=== PATIENT | female | born 1960 | race African-American/Black ===

== ENCOUNTER 2019-03-12 10:30 | Emergency (ER) | payer BC ==
--- NOTE | 2019-03-12 12:03 | RADIOLOGY REPORT (SQ) ---
EXAM DESCRIPTION: KNEE LEFT 4 VIEW COMPLETED DATE/TIME: 03/12/2019 11:48 am REASON FOR STUDY: left knee pain COMPARISON: None. NUMBER OF VIEWS: Four views left knee LIMITATIONS: None. FINDINGS: Mild anterior soft tissue swelling without radiopaque foreign body. Mild calcification, e nthesophyte formation along quadriceps insertion. No fracture or worrisome bone lesion. No effusion . OTHER: No other significant finding. IMPRESSION: As above. No fracture. TECHNICAL DOCUMENTATION: JOB ID: [id number] Reading location - IP/workstation name: [email or web address]
--- NOTE | 2019-03-12 12:15 | ER Document Report ---
HPI - HPI Patient complains to provider of: left knee pain Time Seen by Provider: 03/12/19 12:12 Onset: Just prior to arrival Onset/Duration: Sudden Severity: Severe Pain Level: 5 Context: Patient reports to the emergency department via EMS for complaints of left knee pain. Patient reports she was walking out to her car when she fell on the asphalt hitting her chin on the curb and her knee on the sidewalk. She is not sure when her last tetanus was. Patient reports she is able to walk but it hurts when she walks. Denies past medical history of injury to the knee. No other complaints such as fever vomiting diarrhea dizziness. Associated Symptoms: None Exacerbated by: Walking Relieved by: Denies Similar symptoms previously: No Recently seen / treated by doctor: No Past Medical History - General Information source: Patient Last Menstrual Period: cinthya. - Social History Smoking Status: Unknown if Ever Smoked Cigarette use (# per day): No Frequency of alcohol use: None Drug Abuse: None Occupation: [employer] Family History: None Patient has suicidal ideation: No Patient has homicidal ideation: No - Medical History Medical History: Negative Past Surgical History: Reports: Hx Section, Hx Herniorrhaphy Vertical Provider Document - CONSTITUTIONAL Agree With Documented VS: Yes Exam Limitations: No Limitations General Appearance: WD/WN, No Apparent Distress - HEENT HEENT: Atraumatic, Normocephalic - NECK Neck: Supple - RESPIRATORY Respiratory: No Respiratory Distress - CARDIOVASCULAR Cardiovascular: Regular Rate - MUSCULOSKELETAL/EXTREMETIES Musculoskeletal/Extremeties: MAEW, FROM, Tender - left knee pain small abrasion to anterior knee, small scratch to chin Course - Re-evaluation Re-evalutation: 03/12/19 12:41 Knee x-ray negative for acute fracture. Patient instructed on signs and symptoms of infection instructed to stay home rest ice elevate the knee. Follow-up with your primary care provider for continued pain or concerns. She verbalized understanding to all instructions. Dictation of this chart was performed using voice recognition software; therefore, there may be some unintended grammatical errors. - Vital Signs Vital signs: Temp Pulse Resp BP Pulse Ox 98.4 F 84 18 148/98 H 98 03/12/19 10:44 03/12/19 10:44 03/12/19 10:44 03/12/19 10:44 03/12/19 10:44 - Diagnostic Test Radiology reviewed: Image reviewed, Reports reviewed - EXAM DESCRIPTION: KNEE LEFT 4 VIEW COMPLETED DATE/TIME: 03/12/2019 11:48 am REASON FOR STUDY: left knee pain COMPARISON: None. NUMBER OF VIEWS: Four views left knee LIMITATIONS: None. FINDINGS: Mild anterior soft tissue swelling without radiopaque foreign body. Mild calcification, enthesophyte formation along quadriceps insertion. No fracture or worrisome bone lesion. No effusion. OTHER: No other significant finding. IMPRESSION: As above. No fracture. Discharge - Discharge Clinical Impression: Left knee pain Condition: Stable Disposition: HOME, SELF-CARE Instructions: Abrasions ([facility]), Acetaminophen, Ice & Elevation ([facility]), Tetanus Immunization Given ([facility]) Additional Instructions: *You have been evaluated post fall for a knee injury, abrasion *Rest/Ice/Elevate your knee *keep the area clean, monitor for signs of infection such as redness/swelling/discharge/increased pain *Follow up with your primary care provider within one week for recheck or orthopedics referral as indicated *Take tylenol as indicated *Return to ED for worsening condition, changes, needs Monitor your blood pressure. Your blood pressure was elevated today. This may be because you were anxious, in pain or because you need medication. It is important to follow up with your primary care provider for full evaluation. Forms: Elevated Blood Pressure, Return to Work
[2019-03-12] MEDS ORDERED: DIPH/PERTUSS(ACELL)/TETANUS VAC/PF 0.5 ML SYR (>=10YO) IM ONE (12:26)
[2019-03-12 12:37] VITALS: BP 137/91
== END 2019-03-12 13:15 | disposition home or self-care (01) ==
LOC: ER 10:30
DX: S80.212A Abrasion, left knee, initial encounter (principal); S00.81XA Abrasion of other part of head, initial encounter; M25.562 Pain in left knee; W10.1XXA Fall (on)(from) sidewalk curb, initial encounter; Y93.89 Activity, other specified
CPT/HCPCS: 90471; 90715; 99283